=== PATIENT | male | born 1995 | race Hispanic/Latino ===

== ENCOUNTER 2018-05-08 20:58 | Emergency (ER) | payer SELFPAY ==
[~2018-05-08] VITALS: Ht 167.6 cm; Wt 182.6 kg
[2018-05-08] MEDS ORDERED: ACETAMINOPHEN 325 MG TAB PO ONE (21:15)
[2018-05-08 21:28] LABS: BASOPHILS % 0.3 % (0.0-1.0); EOSINOPHILS # (AUTO) 0.1 (0.0-0.4); EOSINOPHILS % 1.3 % (0.0-6.0); HEMATOCRIT 42.3 % (38.2-49.6); HEMOGLOBIN 13.5 g/dL (14.0-18.0); LYMPHOCYTES # (AUTO) 2.5 (1.0-3.2); LYMPHOCYTES % 24.7 % (18.0-39.1); MEAN CORPUSCULAR HEMOGLOBIN 27.7 pg (28-32); MEAN CORPUSCULAR HGB CONC 31.9 g/dL (31-35); MEAN CORPUSCULAR VOLUME 86.9 fL (81-99); MONOCYTES # (AUTO) 0.8 (0.2-0.8); MONOCYTES % 7.5 % (4.4-11.3); NEUTROPHILS # (AUTO) 6.7 (2.1-6.9); NEUTROPHILS % 65.6 % (38.7-80.0); PLATELET COUNT 352 x10e3/uL (140-360); RED BLOOD COUNT 4.87 x10e6/uL (4.3-5.7); RED CELL DISTRIBUTION WIDTH 13.9 % (11.7-14.4)
[2018-05-08 21:43] LABS: INR 1.1; PROTHROMBIN TIME 13.4 seconds (11.9-14.5)
[2018-05-08 21:44] LABS: PARTIAL THROMBOPLASTIN TIME 29.5 seconds (23.8-35.5)
[2018-05-08 21:52] LABS: ALANINE AMINOTRANSFERASE 29 IU/L (0-55); ALBUMIN 3.6 g/dL (3.5-5.0); ALBUMIN/GLOBULIN RATIO 0.8 (0.8-2.0); ALKALINE PHOSPHATASE 84 IU/L (40-150); BLOOD UREA NITROGEN 11 mg/dL (7-26); BUN/CREATININE RATIO 16 (6-25); CALCIUM 10.1 mg/dL (8.4-10.2); CARBON DIOXIDE 26 mmol/L (22-29); CHLORIDE 101 mmol/L (98-107); EST GLOMERULAR FILTRATION RATE > 60 ML/MIN (60-); GLUCOSE 118 mg/dL (74-118); SODIUM 136 mmol/L (136-145)
--- NOTE | 2018-05-08 21:58 | Diagnostic Imaging Report ---
EXAM: LOWER LEG LEFT, AP and lateral INDICATION: Left lower leg redness and swelling COMPARISON: None FINDINGS: BONES: No acute fractures. JOINTS: No malalignment. SOFT TISSUES: Soft tissue edema. IMPRESSION: No acute bone findings of the left tibia or fibula. Signed by: Dr. Mohini La M.D. on 05/08/2018 9:55 PM
--- NOTE | 2018-05-08 22:03 | Diagnostic Imaging Report ---
EXAM: FOOT LEFT COMPLETE, AP, lateral and oblique INDICATION: Left lower leg and foot swelling COMPARISON: None FINDINGS: BONES: Questionable irregularity to the base of the second metatarsal. JOINTS: Questionable widening of the first and second metatarsal bases and medial and intermediate cuneiforms. SOFT TISSUES: Marked soft tissue swelling of the foot. IMPRESSION: Questionable irregularity to the Lisfranc joint, please correlate with point tenderness. This could be positional. Otherwise, soft tissue swelling of the foot. Signed by: Dr. Mohini La M.D. on 05/08/2018 10:00 PM
[2018-05-08 22:21] VITALS: BP 122/69
== END 2018-05-08 22:36 | disposition home or self-care (01) ==
LOC: ER 20:58
DX: M79.662 Pain in left lower leg (principal); L03.116 Cellulitis of left lower limb; S96.912A Strain of unspecified muscle and tendon at ankle and foot level, left foot, initial encounter
CPT/HCPCS: 36415; 80053; 85025; 85610; 85730; 87040; 93971; 99284